=== PATIENT | male | born 1985 | race Caucasian/White ===

== ENCOUNTER 2016-08-14 16:26 | Emergency (ER) | payer MEDICAID ==
[2016-08-14 16:41] VITALS: BP 128/94; PULSE 101; RESP 16; TEMP 98.4; O2SAT 95
--- NOTE | 2016-08-14 17:50 | EDPHY ---
HPI/HX/ROS/PE/MDM Narrative: Chief complaint: Bilateral ear lobe pain HPI: Patient presenting with several days of worsening bilateral ear lip swelling. Patient states that he did have some pus draining from his right earlobe in the swelling has gone down. He is still having significant swelling of his left earlobe. No recent foreign bodies or manipulations that he is aware of. Did state that his girlfriend tried to ruthie it but did not get any pus out of it. No fevers or chills. Does have some pain is lower left teeth but states that this is not new. No neck pain. No difficulty breathing or swallowing. ROS: 10 point Review of Systems is negative except as noted in the HPI. Physical exam: Gen: Awake, Alert, No Distress HEENT: Ears: Bilateral TMs are normal, no erythema or bulging. External auditory canals are clear, he has significant swelling of his left pinna with fluctuance erythema and pointing. There is mild swelling of his right pinna but is non fluctuant in feels more like healing scar tissue. Nose: no rhinorrhea Eyes: PERRLA, EOMI Mouth: Moist mucosa Skin: no rash Neuro: CN II-XII intact, Sensation grossly intact, Strength 5/5 in bilateral upper and lower extremities ED Course: Procedure: Abscess drainage. The patient's abscess was located on the left ear. I obtained verbal consent from the patient to drain the abscess who was informed about the possibility of bleeding and pain. The abscess was incised with [a 11 scalpel] and a large amount of purulent drainage was expressed. I irrigated the wound and placed some packing. The patient tolerated the procedure well. The procedure was performed by myself. General Time Seen by Provider: 08/14/16 16:56 Initial Vital Signs: Initial Vital Signs Temperature (C) 36.9 C 08/14/16 16:38 Heart Rate 101 H 08/14/16 16:38 Respiratory Rate 16 08/14/16 16:38 Blood Pressure 128/94 H 08/14/16 16:38 O2 Sat (%) 95 08/14/16 16:38 O2 Delivery Mode Room Air Allergies/Adverse Reactions: No Allergies [NKDA] Allergy (Verified 04/08/14 14:03) Home Medications: Medication Instructions Recorded Dextroamphetamine/Amphetamine 20 mg PO DAILY 10/03/11 [Adderall Xr 20 mg Capsule] Albuterol [Proventil Inhaler HFA 1 - 2 puffs IH Q4H 01/01/14 (RX)] Departure - Departure Disposition: Home, Routine, Self-Care Clinical Impression: Abscess Condition: Good Instructions: Abscess (ED) Additional Instructions: Leave the packing in place for the next 2-3 days. You may then remove it or you can wait to your see your primary care doctor. Follow up with her primary care physician in 3-4 days. Return to the emergency depart for increasing swelling, pain, fevers, chills, redness, or any other concerns. Referrals: Krysetn Joy PA [Primary Care Provider] - As per Instructions
== END 2016-08-14 18:12 | disposition home or self-care (01) ==
DX: H60.02 Abscess of left external ear (principal)

== ENCOUNTER 2016-08-27 12:11 | Emergency (ER) | payer MEDICAID ==
--- NOTE | 2016-08-27 12:54 | EDPHY ---
H & P Time Seen by Provider: 08/27/16 12:23 HPI/ROS: CHIEF COMPLAINT: Dental pain HISTORY OF PRESENT ILLNESS: 31-year-old male presents to the emergency department with dental pain in the left lower tooth. He denies any known trauma or injury. He is concerned about possible infection. He has not seen a dentist in quite some time because he did not have insurance until recently. He denies facial swelling. He has pain more so on the left lower jaw area. No fevers or chills. No treatment at home. ROS: No fevers, chills, facial swelling, neck pain. Past Medical/Surgical History: ADD, orthopedic surgery Social History: Single and lives in [place]. Smoking Status: Current every day smoker Physical Exam: Examination patient is afebrile. No obvious facial swelling noted. The left lower 2nd molar is fractured all the way down to the buccal mucosa. There is some surrounding redness and swelling, however no signs of an abscess. Tender to palpate. The right lower 2nd molar is also fractured elevate down to the buccal mucosa and appears rotted out. Good dentition to his top teeth with fillings present that appear to be intact. Neck is supple without lymphadenopathy. Constitutional: Initial Vital Signs Temperature (C) 36.5 C 08/27/16 12:17 Heart Rate 78 08/27/16 12:17 Respiratory Rate 18 08/27/16 12:17 Blood Pressure 148/82 H 08/27/16 12:17 O2 Sat (%) 96 08/27/16 12:17 O2 Delivery Mode Room Air Allergies/Adverse Reactions: No Allergies [NKDA] Allergy (Verified 08/27/16 12:19) Home Medications: Medication Instructions Recorded Dextroamphetamine/Amphetamine 20 mg PO DAILY 10/03/11 [Adderall Xr 20 mg Capsule] Albuterol [Proventil Inhaler HFA 1 - 2 puffs IH Q4H 01/01/14 (RX)] Penicillin V Potassium 500 mg PO TID #30 tablet 08/27/16 oxyCODONE/APAP 5/325 [Percocet 1 - 2 tab PO Q4-6PRN PRN #15 tab 08/27/16 5/325] MDM/Departure - MDM ED Course/Re-evaluation: 30-year-old male presents with dental pain. The embedded case manager has given him numerous resources for dental aid. He will be started on oral antibiotics, penicillin, and was given a prescription for Percocet for severe pain. He was instructed to return if he developed facial swelling, fever, increasing pain, or any other concerns. - Depart Disposition: Home, Routine, Self-Care Clinical Impression: Dental infection Condition: Good Instructions: Toothache (ED) Additional Instructions: Penicillin 3 times daily for 10 days Percocet for severe pain as directed. Follow up with a dentist as soon as possible. Warm salt water gargles as discussed. Return if you developed facial swelling, fever, increasing pain, or any other concerns. Prescriptions: oxyCODONE/APAP 5/325 [Percocet 5/325] 1 - 2 tab PO Q4-6PRN PRN #15 tab PRN Reason: For Moderate To Severe Pain Penicillin V Potassium 500 mg PO TID #30 tablet Referrals: [facility] [Outside] - As per Instructions [facility] [Outside] - As per Instructions Dental [facility] [Outside] - As per Instructions Dental [facility] [Outside] - As per Instructions Dental [facility] [Outside] - As per Instructions
[2016-08-27 13:01] VITALS: BP 120/78; PULSE 70; RESP 14; TEMP 97.9; O2SAT 94
== END 2016-08-27 13:00 | disposition home or self-care (01) ==
DX: K04.7 Periapical abscess without sinus (principal); F17.200 Nicotine dependence, unspecified, uncomplicated

== ENCOUNTER 2016-09-10 16:47 | Emergency (ER) | payer MEDICAID ==
--- NOTE | 2016-09-10 17:09 | EDPHY ---
H & P Smoking Status: Current every day smoker Time Seen by Provider: 09/10/16 16:58 HPI/ROS: CHIEF COMPLAINT: Left elbow pain x3 days HISTORY OF PRESENT ILLNESS: 31-year-old male, homeless, complaining of atraumatic left elbow pain when he sustained a mechanical fall down some stairs 3 days ago landing on his left elbow. He has an abrasion, tenderness on the dorsal aspect, soft tissue swelling on the dorsal aspect. Full range of motion including supination pronation which is by and large with minimal pain. No proximal or distal pain or injury. No head injury. Tetanus is up-to-date. PHYSICAL EXAM (Prior to examination, patient consented to physical exam, hands were washed and my usual and customary physical exam procedures followed) 1) GENERAL: Well-developed, well-nourished, alert and oriented. Appears to be in no acute distress. 2) HEAD: Normocephalic 3) HEENT: Pupils equal, round, reactive to light bilaterally. 4) LUNGS: Breathing comfortably. 5) MUSCULOSKELETAL: Left upper extremity: Clavicle, shoulder, humerus, forearm wrist hand are nontender. There is soft tissue swelling over the olecranon bursa and associated abrasion. There is mild halo erythema with no lymphangitic streaking. No axillary adenopathy. He does have reproducible pain with flexion extension. Soft compartments. Normal coloration. 6) SKIN: abrasion dorsal elbow 7) VASCULAR: pulses and cap refill present are brisk 8) NEUROLOGIC: Radial, ulnar, median nerve function intact with no deficits appreciated on exam DIFFERENTIAL DIAGNOSIS: in no particular order including but not limited to fracture, sprain, compartment syndrome Left elbow, 3 views. History: PAIN Comparison examination:none available Findings: No fracture identified. Normal alignment. Joint spaces are maintained. Soft tissues appear unremarkable. Impression: Negative left elbow radiographs. Dictated By: James Camacho MD Images reviewed by myself Procedure: Splint an upper extremity sling was applied by ER mechanical facilities technician. After application of the splint I returned and re-examined the patient. The splint was adequately immobilizing the joint and distal to the splint the patient's circulation and sensation were intact. Patient shows no signs of compartment syndrome. Was given orthopedic precautions. (Lovely Lyman) Constitutional: Initial Vital Signs Temperature (C) 36.4 C 09/10/16 16:51 Heart Rate 80 09/10/16 16:51 Respiratory Rate 16 09/10/16 16:51 Blood Pressure 151/88 H 09/10/16 16:51 O2 Sat (%) 96 09/10/16 16:51 O2 Delivery Mode Room Air Allergies/Adverse Reactions: No Allergies [NKDA] Allergy (Verified 09/10/16 16:50) Home Medications: Medication Instructions Recorded Dextroamphetamine/Amphetamine 20 mg PO DAILY 10/03/11 [Adderall Xr 20 mg Capsule] Albuterol [Proventil Inhaler HFA 1 - 2 puffs IH Q4H 01/01/14 (RX)] Penicillin V Potassium 500 mg PO TID #30 tablet 08/27/16 oxyCODONE/APAP 5/325 [Percocet 1 - 2 tab PO Q4-6PRN PRN #15 tab 08/27/16 5/325] Cephalexin [Keflex] 500 mg PO QID 10 Days 09/10/16 Sulfamethox/Tmp 800/160 mg 1 tab PO BID@1000,2200 10 Days 09/10/16 [Bactrim Ds] MDM/Departure - MDM ED Course/Re-evaluation: 5:55 p.m.: Re-evaluation, compartments soft, neurovascular intact. Awaiting x- rays to be performed. 6:25 p.m.: Re-evaluation after x-rays performed. This patient has no evidence of fracture on x-ray. He has been informed that occult fracture not ruled out, bursal injury not ruled out. Doubt septic bursitis or septic arthritis. I think he does have early cellulitis around his abrasion. I am starting him on dual therapy of Bactrim and Keflex. There is no fluctuance or area to suggest abscess. Recommend ice packs and follow up with Orthopedics. Usual and customary wound and orthopedic precautions instructions provided. (Lovely Lyman ) I did not see this patient while he was in the emergency department. However his care was discussed with the PA while the patient was in the department. I agree with treatment plan and management (Tawanda Farr) - Depart Disposition: Home, Routine, Self-Care Clinical Impression: Cellulitis of left elbow Injury of left elbow Qualifiers: Encounter type: initial encounter Qualified Code(s): S59.902A - Unspecified injury of left elbow, initial encounter Abrasion of left elbow, initial encounter Qualifiers: Encounter type: initial encounter Qualified Code(s): S50.312A - Abrasion of left elbow, initial encounter Condition: Good Instructions: Cellulitis (ED), Elbow Sprain (ED), Abrasion (ED) Additional Instructions: Return to the ER if you develop redness, swelling, discharge, warmth to the wound, red streaks going up your arm , or any other symptoms that concern you. Prescriptions: Cephalexin [Keflex] 500 mg PO QID 10 Days Sulfamethox/Tmp 800/160 mg [Bactrim Ds] 1 tab PO BID@1000,2200 10 Days Referrals: Brie Dove MD [Medical Doctor] - 5-7 days, call for appt.
[2016-09-10 18:40] VITALS: BP 128/78; PULSE 70; RESP 14; TEMP 98.4; O2SAT 94
== END 2016-09-10 18:40 | disposition home or self-care (01) ==
DX: S50.312A Abrasion of left elbow, initial encounter (principal); L03.114 Cellulitis of left upper limb; W10.8XXA Fall (on) (from) other stairs and steps, initial encounter; Y93.89 Activity, other specified

== ENCOUNTER 2017-04-06 15:29 | Emergency (ER) | payer MEDICAID ==
[2017-04-06 15:36] VITALS: TEMP 97.9
[2017-04-06] MEDS ORDERED: AZITHROMYCIN 250 MG TAB PO ONE (17:37)
[2017-04-06] MEDS ORDERED: ALBUTEROL INH PREPACK MDI TAKEHOME ONE (17:37)
[2017-04-06] MEDS ORDERED: IPRATROPIUM/ALBUTEROL 3 ML DEYVIAL IH ONE (17:37)
[2017-04-06] MEDS ORDERED: IPRATROPIUM/ALBUTEROL 3 ML DEYVIAL ONE (17:37)
[2017-04-06] MEDS ORDERED: DEXAMETHASONE 4 MG TAB PO ONE (17:37)
--- NOTE | 2017-04-06 17:41 | EDPHY ---
General - History Smoking Status: Current every day smoker Narrative: CHIEF COMPLAINT: Cough x2 weeks HISTORY OF PRESENT ILLNESS: Patient complains of nearly 2 weeks duration of cough, congestion, runny nose, body aches. Symptoms are [id number]-[id number]. The constant duration. Sometimes worse at night. He has attempted to drink tea and the symptoms did get better with Gordo earlier today. He is not taking any ugka-ckp-yewtrpa medications. No chest pain. Occasional shortness of breath. No vomiting but he has had nausea. No abdominal pain. No urinary complaints. No headache. No neck pain or stiffness No other associated complaints or modifying factors. REVIEW OF SYSTEMS: Ten systems reviewed and are negative unless otherwise noted in the HPI PCP: Dr. Puckett ([facility]) SPECIALISTS: None PAST MEDICAL HISTORY: Attention deficit hyperactivity disorder, asthma PAST SURGICAL HISTORY: Orthopedic surgery 10 years ago SOCIAL HISTORY: Daily smoker. Occasional alcohol. In frequent marijuana use. Lives in [place] with friends and girlfriend FAMILY HISTORY: Noncontributory EXAMINATION General Appearance: Alert, no distress Head: normocephalic, atraumatic Eyes: Pupils equal and round, no conjunctival pallor or injection ENT, Mouth: Mucous membranes moist. Airway patent. Uvula midline. No erythema or edema. No abnormality of the floor of the mouth Neck: Normal inspection, supple, non-tender Respiratory: Scattered wheezing. Mild rhonchi. No consolidation. No diminishment. No retractions. No crackles. No distress. Cardiovascular: Regular rate and rhythm. No murmur Gastrointestinal: Abdomen is soft and nontender Back: non-tender, no bony abnormalities Neurological: A&O, nonfocal, normal gait Skin: Warm and dry, no rash. No petechiae or purpura Extremities: Nontender, no pedal edema Psychiatric: Mood and affect normal DIFFERENTIAL DIAGNOSES: Including but not limited to acute bronchitis, chronic bronchitis, pneumonia, influenza, pneumonitis, respiratory infection, lower respiratory infection, upper respiratory infection MDM: 5:35 p.m. Two weeks of cough, congestion, runny nose and possibly flu-like symptoms. His vital signs are within normal limits. He has an appearance of bronchitis and less likely influenza or pneumonia. He has no hypoxia. No tachycardia. No fever. His lungs exhibit wheezing but no consolidation, diminishment or crackles. I do not feel that he would benefit from laboratory studies are chest x-ray as well not changed his course of therapy. I will treat him for presumptive bacterial bronchitis versus community-acquired pneumonia. Treat with Zithromax, 1 dose of Decadron, breathing treatment here and albuterol nebulizer at home. Discharged with continuation of the Zithromax and albuterol inhaler. Patient is agreeable with this plan. I will recheck after breathing treatment 6:05 p.m. Patient re-evaluated. Lungs are clear in all [place] after the breathing treatment. He has had is Decadron Zithromax. Discharged home with Tessalon Perles, remainder of Zithromax treatment, ibuprofen every 8 hours. Increase fluid intake. Recommend Mucinex and ylpx-fod-bewxupw medications as discussed as needed. Follow up with primary care physician. ED precautions discussed. He is comfortable with this plan. He is discharged home stable condition. (Sean Uriarte) The patient was evaluated and managed by the physician assistant service manager. I have reviewed this chart and I agree with the findings and plan of care as documented , as indicated by my signature. I am the secondary supervising physician. ( Francoise Poon) - Objective Vital Signs: Initial Vital Signs Temperature (C) 36.6 C 04/06/17 15:34 Heart Rate 86 04/06/17 15:34 Respiratory Rate 18 04/06/17 15:34 Blood Pressure 153/101 H 04/06/17 15:34 O2 Sat (%) 96 04/06/17 15:34 O2 Delivery Mode Room Air Allergies/Adverse Reactions: No Allergies [NKDA] Allergy (Verified 04/06/17 15:33) Home Medications: Medication Instructions Recorded Adderall Xr 10 mg Capsule 04/06/17 Albuterol 04/06/17 Azithromycin [Zithromax] 250 mg PO DAILY #4 tab 04/06/17 Benzonatate [Tessalon Pearles (RX)] 100 mg PO Q8 PRN #15 cap 04/06/17 Ibuprofen 600 mg PO Q8 PRN #15 tablet 04/06/17 Medications Given: Discontinued Medications Albuterol Sulfate (Proventil Inh Prepack) 1 mdi TAKEHOME EDNOW ONE Stop: 04/06/17 17:38 Last Admin: 04/06/17 18:22 Dose: 1 mdi Albuterol/Ipratropium (Duoneb) 3 ml IH EDNOW ONE Stop: 04/06/17 17:38 Last Admin: 04/06/17 17:44 Dose: 3 ml Azithromycin (Zithromax) 500 mg PO EDNOW ONE PRN Reason: Protocol Stop: 04/06/17 17:38 Last Admin: 04/06/17 17:44 Dose: 500 mg Dexamethasone (Decadron) 8 mg PO EDNOW ONE Stop: 04/06/17 17:38 Last Admin: 04/06/17 17:44 Dose: 8 mg Departure - Departure Disposition: Home, Routine, Self-Care Clinical Impression: Acute bronchitis Condition: Good Instructions: Albuterol (By breathing), Influenza (ED), Acute Bronchitis (ED), Pneumonia (ED) Additional Instructions: 1. Medications as prescribed to completion 2. Follow up with primary care physician 3. ED precautions as discussed Referrals: NONE *PRIMARY CARE P,. [Primary Care Provider] - As per Instructions Krysten Joy PA [Physician Government Relations Analyst] - As per Instructions Prescriptions: Azithromycin [Zithromax] 250 mg PO DAILY #4 tab Benzonatate [Tessalon Pearles (RX)] 100 mg PO Q8 PRN #15 cap PRN Reason: Cough, Mild Ibuprofen 600 mg PO Q8 PRN #15 tablet PRN Reason: Pain, Mild
[2017-04-06 17:56] VITALS: BP 147/89; PULSE 84
[2017-04-06 18:29] VITALS: RESP 16; O2SAT 95
== END 2017-04-06 18:29 | disposition home or self-care (01) ==
DX: J20.9 Acute bronchitis, unspecified (principal); J45.909 Unspecified asthma, uncomplicated; F17.200 Nicotine dependence, unspecified, uncomplicated